=== PATIENT | female | born 1980 | race Caucasian/White ===

== ENCOUNTER 2017-10-14 14:55 | Emergency (ER) | payer OTHER ==
[2017-10-14 14:58] VITALS: TEMP 36.8
[2017-10-14] MEDS ORDERED: DOXY-300 PO (16:38)
[2017-10-14] MEDS ORDERED: ACETAMINOPHEN 500 MG TAB PO STA (16:50)
[2017-10-14] MEDS ORDERED: LIDO/EPINEPHRINE/SOD BICARB 20 ML VIAL INFIL ONE (17:00)
--- NOTE | 2017-10-14 18:03 | EMERGENCY ROOM VISIT NOTE ---
ED Visit Note First contact with patient: 16:20 CHIEF COMPLAINT: Laceration above right eyebrow 90 minutes ago HISTORY OF PRESENT ILLNESS: Patient is a 37-year-old white female who presents to emergency department by her parents for evaluation of a laceration above the right eyebrow that she sustained about 90 minutes ago. Patient reports that she tripped going up the stairs, her shoe fell off and she fell, striking the right forehead on a hard surface floor, causing the laceration described below. She did not lose consciousness. Her mother attended to her immediately. They applied pressure to the wound and bleeding controlled with in a short time period. She also had some bleeding from the right nostril which was also controlled. The patient has a history of Apert's syndrome, and has had several orthopedic surgeries. Her father reports that her elbows are fused, and due to her skeletal issues she was not able to get her arms out to catch herself. She notes a mild generalized headache that she rates a 5/10. She denies any lightheadedness, dizziness, double or blurry vision, nausea, vomiting or neck pain. She does feel a little "foggy." There has been no difficulty with balance, speech or coordination from her baseline and her parents state that she has been acting appropriately. She notes that she bumped her knee, and her hands, but denies any other significant injuries other than the laceration. REVIEW OF SYSTEMS: Review of systems as per HPI. All other systems reviewed were negative. 10 systems reviewed. PMH: Electronic medical records are reviewed and summarized as above/below. See Problem List. Her tetanus is up-to-date. She has had multiple craniofacial surgeries and orthopedic procedures, including surgery for syndactyly, elbow surgery, spine surgery for scoliosis. She has had multiple [employer] shunts placed and subsequently removed. She does not presently have a shunt in place. SOCIAL HISTORY: Patient lives at home with her parents. Nonsmoker. She is not presently employed. PHYSICAL EXAM: Vital Signs: Reviewed Nurse's notes. CONSTITUTIONAL: Pleasant, well-appearing 37-year-old white female who is awake and alert and in no acute distress. GCS: 15 HEENT: Normocephalic, atraumatic. Pupils equal, round, reactive to light and accommodation. EOMs intact without nystagmus. Sclera are anicteric. Tympanic membranes intact, with normal landmarks. External canals are clear. No hemotympanum or Mosqueda sign. Oral and nasopharynx are clear. Dry blood noted in the right nostril. No septal hematoma. No CSF rhinorrhea. Mucous membranes are moist. FACE: Patient is a 5 cm laceration noted above the right eyebrow. No facial bony tenderness to palpation. The jaw opens and closes fully without malalignment. NECK: Supple, nontender, no lymphadenopathy. Full range of motion. HEART: Regular rate and rhythm, with normal S1 and S2, no murmur or gallop or rub is heard. LUNGS: Breath sounds equal and clear to auscultation without wheezes, rales, or rhonchi heard. SKIN: No lesions or rash, normal skin turgor. EXTREMITIES: No cyanosis, edema, joint tenderness or swelling. 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 NEUROLOGICAL: Alert and oriented x4. Cranial nerves 2 through 12, sensation and strength grossly intact. Gait is normal. Mini-Mental status exam is unremarkable. EMERGENCY DEPARTMENT COURSE: The patient was seen and assessed as above. She has a benign neurologic exam. The fall was mechanical in nature and not consistent with syncope or seizure. Treatment options were discussed with the patient and her family. Given the mechanism of injury and her unremarkable neuro exam, I did discuss risks, benefits and alternatives to neuro imaging with a CT scan, and at this point they would like to defer and monitor the patient for any worsening signs of a head injury. I felt that this was reasonable. Laceration was repaired as noted below. Verbal and written wound care instructions in addition to head injury instructions were outlined with the patient and her family. She is discharged to home in good condition. Differential diagnoses entertained included head contusion, laceration, concussion, closed head injury, acute intracranial bleed, skull or facial bone fracture, among others. PROCEDURE NOTE: The wound was prepped with chlorhexidine and draped with sterile towels. The wound was anesthetized with 1% buffered lidocaine with epinephrine. The laceration was irrigated copiously using normal saline solution and direct pressure irrigation. There is no evidence for foreign body. Hemostasis was maintained. The deep layers of the wound were repaired using 6, 6-0 PDS sutures. Skin was then meticulously reapproximated using 14, 6-0 nylon sutures. Bacitracin was applied. Patient tolerated the procedure well. Problem List Medical Problems: (1) Apert's syndrome Status: Chronic Surgical Problems: (1) History of brain shunt Status: Resolved (2) History of facial surgery Status: Resolved (3) History of orthopedic surgery Status: Resolved Current/Historical Medications Scheduled Doxycycline (Monohydrate) (Doxycycline), 100 MG PO BID Allergies Coded Allergies: Sulfamethoxazole w/Trimethoprim (Verified Allergy, Severe, RASH, 10/14/17) Vancomycin (Verified Allergy, Severe, RED NORMA SYNDROME, 10/14/17) Vital Signs Date Time Temp Pulse Resp B/P (MAP) Pulse Ox O2 Delivery O2 Flow Rate FiO2 10/14/17 19:07 89 16 128/72 97 10/14/17 17:06 15 128/76 100 Room Air 10/14/17 14:58 36.8 89 18 142/78 100 Room Air Medications Administered Medications (Trade) Dose Ordered Sig/Oscar Route Start Time Stop Time Status Last Admin Dose Admin Acetaminophen (Tylenol Tab) 1,000 mg NOW STAT PO 10/14/17 16:50 10/14/17 16:51 DC 10/14/17 16:58 1,000 MG Departure Information Impression Primary Impression: Facial laceration Referrals No Doctor, Assigned (PCP) Patient Instructions My [facility] Additional Instructions Keep wound clean and dry. Do not allow any crusting or dried blood to accumulate on sutures. Clean gently with mild soap and water daily. Use an antibiotic ointment for 3-4 days, then let wound dry. Suture removal in 67 days. Return sooner for any signs of infection (increasing redness, swelling, drainage). Ice and elevate for swelling and pain. Tylenol 1000 mg every 6 hrs for pain. Read the head injury instructions, and seek immediate medical attention for any problems or concerns.
[2017-10-14 19:07] VITALS: BP 128/72; PULSE 89; O2SAT 97
== END 2017-10-14 19:05 | disposition home or self-care (01) ==
LOC: C.EDB 14:57 → C.EDA 19:05
DX: S01.111A Laceration without foreign body of right eyelid and periocular area, initial encounter (principal); W10.8XXA Fall (on) (from) other stairs and steps, initial encounter; Z98.890 Other specified postprocedural states; Z88.2 Allergy status to sulfonamides; Z88.3 Allergy status to other anti-infective agents